=== PATIENT | female | born 1975 | race Caucasian/White ===

== ENCOUNTER 2024-04-16 18:44 | Inpatient (IN) | payer OTHER ==
[2024-04-16] MEDS ORDERED: KETOROLAC TROMETHAMINE 30 MG/1 ML VIAL ONE (20:59)
[2024-04-16] MEDS: KETOROLAC TROMETHAMINE 30 MG/1 ML VIAL IVPUSH ONE (21:14)
[2024-04-16] MEDS ORDERED: morphine SULFATE 4 MG/ML VIAL ONE (21:26)
[2024-04-16] MEDS ORDERED: LIDOCAINE 4% PATCH TP ONE (21:29)
[2024-04-16 21:44] LABS: BASO % 0.7 % (0-2.0); EOS % 19.7 % (0-4.5); HEMATOCRIT 39.3 % (32.4-45.2); HEMOGLOBIN 13.4 GM/dL (10.7-15.3); LYMPH % 21.6 % (8-40); MCH 32.4 pg (25.7-33.7); MEAN CELL VOLUME 95.1 fl (80-96); MEAN PLT VOLUME 8.3 fl (7.5-11.1); MONO % 11.5 % (3.8-10.2); NEUT % 46.5 % (42.8-82.8); PLATELET COUNT 271 10^3/uL (134-434); RBC 4.14 M/mm3 (3.60-5.2); RDW 12.8 % (11.6-15.6); WHITE BLOOD COUNT 8.6 K/mm3 (4.0-10.0)
[2024-04-16 21:51] LABS: INR 0.93 (0.83-1.09); PROTHROMBIN TIME (PATIENT) 10.7 SEC (9.7-13.0)
[2024-04-16 21:54] LABS: ACTIVATED PTT 25.6 SECONDS (25.2-36.5)
[2024-04-16 22:06] LABS: POTASSIUM 3.5 mmol/L (3.5-5.1)
[2024-04-16 22:08] LABS: ALBUMIN 3.5 g/dl (3.4-5.0); BLOOD UREA NITROGEN 14.1 mg/dL (7-18); CALCIUM 9.2 mg/dL (8.5-10.1)
[2024-04-16 22:13] LABS: BILIRUBIN,TOTAL 0.4 mg/dL (0.2-1); TOT PROT 5.9 g/dl (6.4-8.2)
[2024-04-17] MEDS: LIDOCAINE 4% PATCH TP ONE (00:02)
[2024-04-17] MEDS: METHOCARBAMOL 500 MG TABLET PO ONE (00:02)
[2024-04-17] MEDS: morphine CARPU-JECT 4 MG/1 ML DISP.SYRIN IVPUSH ONE (00:02)
[2024-04-17] MEDS ORDERED: morphine SULFATE 4 MG/ML VIAL ONE (00:10)
[2024-04-17] MEDS ORDERED: LIDOCAINE 4% PATCH TP ONE (00:10)
[2024-04-17] MEDS ORDERED: METHOCARBAMOL 500 MG TABLET ONE (00:16)
[2024-04-17 01:12] VITALS: BMI 34.9
[2024-04-17] MEDS: HYDROmorphone HCL 2 MG TABLET PO ONE (03:21)
[2024-04-17] MEDS: ACETAMINOPHEN 1000 MG/100 ML BAG IVPB PRN (06:33)
[2024-04-17] MEDS: GABAPENTIN 100 MG CAPSULE PO SCH (06:34)
[2024-04-17] MEDS: PANTOPRAZOLE 20 MG TABLET PO SCH (06:34)
[2024-04-17 09:20] LABS: EPI CELLS >36 /uL (0-25.1); HYALINE CASTS 1 /uL (0-3.1); URINE APPEARANCE CLOUDY; URINE BACTERIA 1196 /uL (0-1359); URINE BILIRUBIN NEGATIVE (NEGATIVE); URINE COLOR YELLOW; URINE GLUCOSE (UA) NEGATIVE (NEGATIVE); URINE KETONE NEGATIVE (NEGATIVE); URINE LEUK ESTERASE 2+ (NEGATIVE); URINE NITRITE NEGATIVE (NEGATIVE); URINE PROTEIN NEGATIVE (NEGATIVE); URINE RBC 14 /uL (0-23.9); URINE UROBILINOGEN 0.2 mg/dL (0.2-1.0); URINE WBC 51 /uL (0-25.8)
[2024-04-17 10:33] LABS: HEMATOCRIT 42.2 % (32.4-45.2); HEMOGLOBIN 14.4 GM/dL (10.7-15.3); MCH 32.6 pg (25.7-33.7); MCHC 34.2 g/dl (32.0-36.0); MEAN CELL VOLUME 95.3 fl (80-96); MEAN PLT VOLUME 8.5 fl (7.5-11.1); PLATELET COUNT 263 10^3/uL (134-434); RBC 4.43 M/mm3 (3.60-5.2); RDW 12.9 % (11.6-15.6)
[2024-04-17 10:48] LABS: CALCIUM 8.8 mg/dL (8.5-10.1)
[2024-04-17 10:49] LABS: ALBUMIN 3.6 g/dl (3.4-5.0); BLOOD UREA NITROGEN 11.7 mg/dL (7-18); MAGNESIUM 2.2 mg/dL (1.8-2.4)
[2024-04-17 10:50] LABS: CHOLESTEROL 130 mg/dL (50-200)
[2024-04-17 10:51] LABS: LDL CHOLESTEROL (ONLY SJRH) 86 mg/dL (5-100)
[2024-04-17 10:52] LABS: CREATININE 0.7 mg/dL (0.55-1.3); PHOSPHOROUS 3.5 mg/dL (2.5-4.9)
[2024-04-17 10:53] LABS: BILIRUBIN,TOTAL 0.7 mg/dL (0.2-1); TOT PROT 6.1 g/dl (6.4-8.2)
[2024-04-17] MEDS: ASPIRIN COATED 81 MG TABLET.EC PO SCH (10:53)
[2024-04-17] MEDS: ENOXAPARIN NA (PORCINE) 40 MG/0.4 ML DISP.SYRIN SQ SCH (10:53)
[2024-04-17 10:54] LABS: HDL CHOLESTEROL 38 mg/dL (40-60)
[2024-04-17 11:20] LABS: ANISOCYTOSIS 0; MACROCYTOSIS 0
[2024-04-17] MEDS: LIDOCAINE 5% TOPICAL PATCH TP SCH (14:44)
[2024-04-17] MEDS: ATORVASTATIN CA 20 MG TABLET (FP) PO SCH (21:20)
[2024-04-17] MEDS: MONTELUKAST NA 10 MG TABLET PO SCH (21:20)
[2024-04-17] MEDS: LIDOCAINE PATCH REMOVAL MC SCH (21:21)
[2024-04-18] MEDS: ACETAMINOPHEN 1000 MG/100 ML BAG IVPB PRN (02:18)
[2024-04-19 10:49] VITALS: BP 158/99; PULSE 87; RESP 24; TEMP 97.5
== END 2024-04-19 19:29 | disposition home or self-care (01) | DRG 43 ==
LOC: JER 18:44 → JERBED 23:12 → J8W 04-17 00:59
PROVIDERS: ADMIT Internal Medicine
DX: G36.9 Acute disseminated demyelination, unspecified (principal); I10 Essential (primary) hypertension; E66.9 Obesity, unspecified; E78.5 Hyperlipidemia, unspecified; M54.50 Low back pain, unspecified; Z68.34 Body mass index [BMI] 34.0-34.9, adult; K21.9 Gastro-esophageal reflux disease without esophagitis
CPT/HCPCS: 36415; 72128-TC; 72131-TC; 72149-TC; 80053; 80061; 81003; 82962; 83735; 84100; 84703; 85025; 85610; 85730; 86850; 86900; 86901; 93005; 93010; 97116-GP; 99285-25; J0131

== ENCOUNTER 2025-04-09 11:25 | Emergency (ER) | payer OTHER ==
[2025-04-09 11:41] VITALS: BP 141/73; PULSE 82; RESP 18; TEMP 97.8; BMI 42.0
[2025-04-09] MEDS ORDERED: DEXAMETHASONE SOD PHOSPHATE 10 MG/1 ML VIAL ONE (12:20)
[2025-04-09] MEDS ORDERED: KETOROLAC TROMETHAMINE 30 MG/1 ML VIAL ONE (12:20)
[2025-04-09] MEDS: DEXAMETHASONE SOD PHOSPHATE 10 MG/1 ML VIAL IVPUSH ONE (12:44)
[2025-04-09] MEDS: KETOROLAC TROMETHAMINE 30 MG/1 ML VIAL IVPUSH ONE (12:44)
== END 2025-04-09 14:39 | disposition home or self-care (01) ==
LOC: JER 11:25
PROC: 3E033GC Introduction of Other Therapeutic Substance into Peripheral Vein, Percutaneous Approach (ICD-10-PCS; principal; 2025-04-09)
PROC: 3E0333Z Introduction of Anti-inflammatory into Peripheral Vein, Percutaneous Approach (ICD-10-PCS; 2025-04-09)
DX: M54.50 Low back pain, unspecified (principal); G89.29 Other chronic pain; R20.2 Paresthesia of skin; M54.6 Pain in thoracic spine
CPT/HCPCS: 99284-25; J1100